=== PATIENT | female | born 1990 | race Two or more races ===

== ENCOUNTER 2019-04-02 08:43 | Inpatient (IN) | payer BC ==
[~2019-04-02] VITALS: Ht 162.6 cm; Wt 72.7 kg
[2019-04-02] MEDS ORDERED: NEWBORN KIT ONE (08:47)
[2019-04-02] MEDS ORDERED: LIDOCAINE 1%, 20ML ONE (08:47)
[2019-04-02] MEDS ORDERED: FENTANYL PF 100 MCG/2ML ONE (08:47)
[2019-04-02] MEDS ORDERED: MISOPROSTOL 200 MCG TABLET ONE (08:47)
[2019-04-02] MEDS ORDERED: OXYTOCIN 30U/ 0.9% NaCL 500ML 500 ML ONE (08:47)
[2019-04-02] MEDS ORDERED: LACTATED RINGERS 1,000 ML IV SCH (08:52)
[2019-04-02] MEDS ORDERED: OXYTOCIN 30U/ 0.9% NaCL 500ML 500 ML IV ONE (08:52)
[2019-04-02] MEDS ORDERED: D5%-LACTATED RINGERS 1,000 ML IV SCH (08:52)
[2019-04-02] MEDS ORDERED: FENTANYL PF 100 MCG/2ML IVPush PRN (09:00)
[2019-04-02] MEDS ORDERED: ONDANSETRON 2MG/ML, 2ML IVPush PRN (09:00)
[2019-04-02] MEDS ORDERED: FENTANYL PF 100 MCG/2ML IV PRN (09:00)
[2019-04-02] MEDS ORDERED: CALCIUM CARBONATE 500 MG TAB.CHEW PO PRN ×2 (09:00→10:00)
[2019-04-02 09:16] LABS: BASOPHILS # (AUTO) 0.02 x10^3/uL (0-0.1); BASOPHILS % (AUTO) 0 % (0-1); EOSINOPHILS # (AUTO) 0.04 x10^3/uL (0-0.4); EOSINOPHILS % (AUTO) 0 % (1-7); LYMPHOCYTES # (AUTO) 1.13 x10^3/uL (1-3.4); LYMPHOCYTES % (AUTO) 11 % (22-44); MD NO; MEAN CORPUSCULAR HEMOGLOBIN 28.1 pg (27.0-34.8); MEAN CORPUSCULAR HGB CONC 32.6 g/dL (32.4-35.8); MEAN PLATELET VOLUME 8.6 fL (7.4-10.4); MONOCYTES # (AUTO) 0.49 x10^3/uL (0.2-0.8); MONOCYTES % (AUTO) 5 % (2-9); NEUTROPHILS # (AUTO) 8.68 x10^3/uL (1.8-6.8); NEUTROPHILS % (AUTO) 84 % (42-75); PLATELET COUNT 200 x10^3/uL (130-400); RED BLOOD COUNT 4.43 x10^6/uL (3.82-5.3); RED CELL DISTRIBUTION WIDTH 14.5 % (9.6-15.2)
[2019-04-02] MEDS ORDERED: IBUPROFEN 600 MG TABLET ONE (09:34)
[2019-04-02] MEDS: IBUPROFEN 600 MG TABLET PO PRN ×2 (09:37→21:06)
[2019-04-02] MEDS ORDERED: DOCUSATE 100 MG CAPSULE PO PRN (10:00)
[2019-04-02] MEDS ORDERED: ONDANSETRON 2MG/ML, 2ML IV PRN (10:00)
[2019-04-02] MEDS ORDERED: ACETAMINOPHEN 325 MG TABLET PO PRN (10:00)
[2019-04-02] MEDS ORDERED: METHYLERGONOVINE 0.2 MG/ML IM PRN (10:00)
[2019-04-02] MEDS ORDERED: CARBOPROST TROMETHAMINE 250 MCG/ML, 1ML IM PRN (10:00)
[2019-04-02] MEDS ORDERED: HYDROcodone/APAP 5/325 TABLET PO PRN ×2 (10:00)
[2019-04-02] MEDS ORDERED: MISOPROSTOL 200 MCG TABLET PR PRN (10:00)
[2019-04-02] MEDS: OXYTOCIN 30U/ 0.9% NaCL 500ML 500 ML IV SCH ×2 (10:31→19:34)
[2019-04-02 15:33] VITALS: BP 95/52
[2019-04-02 17:24] LABS: BASOPHILS # (AUTO) 0.05 x10^3/uL (0-0.1); BASOPHILS % (AUTO) 0 % (0-1); EOSINOPHILS # (AUTO) 0.11 x10^3/uL (0-0.4); EOSINOPHILS % (AUTO) 1 % (1-7); LYMPHOCYTES # (AUTO) 1.02 x10^3/uL (1-3.4); LYMPHOCYTES % (AUTO) 8 % (22-44); MD NO; MEAN CORPUSCULAR HGB CONC 33.6 g/dL (32.4-35.8); MEAN CORPUSCULAR VOLUME 86.3 fL (80-100); MEAN PLATELET VOLUME 8.6 fL (7.4-10.4); MONOCYTES # (AUTO) 0.71 x10^3/uL (0.2-0.8); MONOCYTES % (AUTO) 6 % (2-9); NEUTROPHILS # (AUTO) 10.56 x10^3/uL (1.8-6.8); NEUTROPHILS % (AUTO) 85 % (42-75); PLATELET COUNT 207 x10^3/uL (130-400); RED BLOOD COUNT 4.14 x10^6/uL (3.82-5.3); RED CELL DISTRIBUTION WIDTH 14.4 % (9.6-15.2)
[2019-04-02 20:50] VITALS: BP 107/53
[2019-04-03 01:00] VITALS: BP 103/62
[2019-04-03 04:30] VITALS: BP 104/65
[2019-04-03] MEDS: OXYTOCIN 30U/ 0.9% NaCL 500ML 500 ML IV SCH (05:34)
[2019-04-03 08:00] VITALS: BP 99/61
[2019-04-03] MEDS ORDERED: PRENATAL VIT/IRON/FA 1 EACH TABLET PO SCH (09:00)
[2019-04-03] MEDS: IBUPROFEN 600 MG TABLET PO PRN (10:12)
== END 2019-04-03 13:59 | disposition home or self-care (01) | DRG 807 ==
LOC: LDIP 08:43 → 2NW 14:50
PROVIDERS: ADMIT Obstetrics & Gynecology; ATTEND Obstetrics & Gynecology
PROC: 10E0XZZ Delivery of Products of Conception, External Approach (ICD-10-PCS; principal; 2019-04-02)
PROC: 10907ZC Drainage of Amniotic Fluid, Therapeutic from Products of Conception, Via Natural or Artificial Opening (ICD-10-PCS; 2019-04-02)
DX: O77.0 Labor and delivery complicated by meconium in amniotic fluid (principal); Z37.0 Single live birth; Z3A.40 40 weeks gestation of pregnancy
CPT/HCPCS: 36415; 85025; 86850; 86900; G0378; J2590; J7120